=== PATIENT | female | born 1995 | race Two or more races ===

== ENCOUNTER 2021-06-30 12:42 | Emergency (ER) | payer BC, OTHER ==
[2021-06-30 13:00] VITALS: BP 108/77; TEMP 98.3; BMI 28.0
[2021-06-30] MEDS ORDERED: predniSONE 20 MG TABLET (UD) PO ONE (13:49)
[2021-06-30] MEDS ORDERED: diphenhydrAMINE HCL 50 MG CAPSULE PO ONE (13:52)
[2021-06-30] MEDS ORDERED: predniSONE 20 MG TABLET (UD) ONE (13:53)
[2021-06-30] MEDS ORDERED: diphenhydrAMINE HCL 25 MG CAPSULE (FP) PO ONE (13:53)
[2021-06-30 14:05] VITALS: PULSE 98
== END 2021-06-30 14:26 | disposition home or self-care (01) ==
LOC: JER 12:42 → JERFT 12:42
DX: L50.9 Urticaria, unspecified (principal)
CPT/HCPCS: 99283-25

== ENCOUNTER 2023-11-08 13:49 | Emergency (ER) | payer OTHER ==
[2023-11-08 13:58] VITALS: BP 119/79; PULSE 89; RESP 18; TEMP 98.4; BMI 25.7
[2023-11-08] MEDS ORDERED: diphenhydrAMINE HCL 25 MG CAPSULE (FP) PO ONE (15:34)
[2023-11-08] MEDS: diphenhydrAMINE HCL 50 MG CAPSULE PO ONE (15:37)
== END 2023-11-08 16:38 | disposition home or self-care (01) ==
LOC: JER 13:49
DX: R21 Rash and other nonspecific skin eruption (principal); H57.89 Other specified disorders of eye and adnexa; T78.1XXA Other adverse food reactions, not elsewhere classified, initial encounter
CPT/HCPCS: 99283-25

== ENCOUNTER 2024-02-12 16:16 | Emergency (ER) | payer SELFPAY ==
[2024-02-12 16:43] VITALS: BP 132/83; PULSE 86; RESP 20; TEMP 98.5; BMI 24.0
[2024-02-12] MEDS ORDERED: predniSONE 20 MG TABLET (UD) ONE (17:00)
[2024-02-12] MEDS ORDERED: FAMOTIDINE 20 MG TABLET ONE (17:00)
[2024-02-12] MEDS: FAMOTIDINE 20 MG TABLET PO ONE (17:04)
[2024-02-12] MEDS: EPINEPHrine 1:1,000 0.3 MG/0.3 ML SYR IM ONE (17:04)
[2024-02-12] MEDS: predniSONE 20 MG TABLET (UD) PO ONE (17:04)
[2024-02-12] MEDS: EPINEPHrine/PF 1 MG/1 ML (1:1,000) AMPULE IM ONE (17:05)
== END 2024-02-12 17:40 | disposition home or self-care (01) ==
LOC: JER 16:16
DX: T78.40XA Allergy, unspecified, initial encounter (principal); L29.9 Pruritus, unspecified; R21 Rash and other nonspecific skin eruption
CPT/HCPCS: 99283-25